=== PATIENT | female | born 1930 | race Caucasian/White ===

== ENCOUNTER 2017-06-28 16:51 | Emergency (ER) | payer BC ==
[~2017-06-28] VITALS: Ht 167.6 cm; Wt 71.9 kg
[2017-06-28 21:05] VITALS: BP 168/75
== END 2017-06-28 21:05 | disposition home or self-care (01) ==
LOC: EME 16:51
DX: M19.042 Primary osteoarthritis, left hand (principal); F03.90 Unspecified dementia, unspecified severity, without behavioral disturbance, psychotic disturbance, mood disturbance, and anxiety; Z79.01 Long term (current) use of anticoagulants; Z85.038 Personal history of other malignant neoplasm of large intestine; Z96.659 Presence of unspecified artificial knee joint
CPT/HCPCS: 73130; 99281; 99284; J1885